=== PATIENT | male | born 1995 | race Two or more races ===

== ENCOUNTER 2019-10-15 10:58 | Emergency (ER) | payer MEDICAID ==
[~2019-10-15] VITALS: Ht 167.6 cm; Wt 59.0 kg
[2019-10-15] MEDS ORDERED: MAGNESIUM/ALUMINUM HYDROXIDE/SIMETHICONE 30ML UDC PO STA (12:04)
[2019-10-15] MEDS ORDERED: KETOROLAC 30MG/ML VIAL IV STA (12:04)
[2019-10-15] MEDS ORDERED: DICYCLOMINE 10 MG/5 ML ORAL SYR PO STA (12:04)
[2019-10-15] MEDS ORDERED: SODIUM CHLORIDE 0.9% 1,000 ML IV ONE (12:04)
[2019-10-15] MEDS ORDERED: ONDANSETRON HCL 4MG/2ML INJ IV STA ×2 (12:04→13:45)
[2019-10-15] MEDS ORDERED: VISCOUS LIDOCAINE 2% 15 ML UDC PO STA (12:04)
[2019-10-15 12:18] LABS: BASOPHILS % 0.3 % (0.0-2.0); EOSINOPHILS % 1.6 % (0.0-5.0); HEMATOCRIT. 41.9 % (42.0-52.0); HEMOGLOBIN. 14.4 g/dL (14.0-18.0); LYMPHOCYTES % 10.5 % (20.0-50.0); MEAN CORPUSCULAR HEMOGLOBIN 29.4 pg (28.0-32.0); MEAN CORPUSCULAR VOLUME 85.9 fL (80.0-94.0); MEAN PLATELET VOLUME 7.9 fl (7.4-10.4); MONOCYTES % 1.4 % (2.0-8.0); NEUTROPHILS % 86.2 % (40.0-76.0); PLATELET 113 x1000/uL (130-400); RED BLOOD CELL COUNT 4.88 mill/uL (4.7-6.1); RED CELL DISTRIBUTION WIDTH 12.8 % (11.6-14.6)
[2019-10-15 12:24] LABS: CHLORIDE 107 mEq/L (98-107)
[2019-10-15 12:28] LABS: ETHANOL BLOOD < 10 mg/dL
[2019-10-15 12:29] LABS: CLARITY URINE CLEAR (CLEAR); COLOR URINE YELLOW (YELLOW); KETONES URINE NEGATIVE (NEGATIVE); LEUKOCYTE ESTERASE URINE NEGATIVE (NEGATIVE); NITRITE URINE NEGATIVE (NEGATIVE); OCCULT BLOOD URINE NEGATIVE (NEGATIVE); PH URINE 7.5 (4.5-8.0); PROTEIN URINE NEGATIVE (NEGATIVE); SPECIFIC GRAVITY URINE 1.021 (1.005-1.030); UROBILINOGEN URINE 0.2 E.U./dL (0.2-1.0)
[2019-10-15 12:46] LABS: *BARBITURATES SCREEN URINE NEGATIVE (NEGATIVE)
[2019-10-15 12:47] LABS: *AMPHETAMINES SCREEN URINE NEGATIVE (NEGATIVE); *BENZODIAZEPINES SCREEN URINE NEGATIVE (NEGATIVE); *COCAINE SCREEN URINE NEGATIVE (NEGATIVE); METHADONE URINE SCREEN NEGATIVE (NEGATIVE); OPIATES URINE SCREEN NEGATIVE (NEGATIVE); PHENCYCLIDINE URINE SCREEN NEGATIVE (NEGATIVE)
[2019-10-15 12:48] LABS: CANNABINOID URINE SCREEN PRESUMTIVE POSITIVE (NEGATIVE)
[2019-10-15] MEDS ORDERED: MORPHINE SULFATE 4 MG/ML CPJ (NOT FOR IM USE) IV STA (13:45)
[2019-10-15 14:04] VITALS: BP 101/58
== END 2019-10-15 14:10 | disposition home or self-care (01) ==
LOC: ER 10:58
DX: R10.33 Periumbilical pain (principal); Z88.0 Allergy status to penicillin
CPT/HCPCS: 36415; 80053; 80305; 80320; 81003; 83690; 85025; 96361; 96374; 96375; 99284; J1885; J2405; J7030; G0480